=== PATIENT | female | born 1960 | race Caucasian/White ===

== ENCOUNTER 2016-12-02 09:30 | Emergency (ER) | payer OTHER ==
[~2016-12-02] VITALS: Ht 160 cm; Wt 77.0 kg
[2016-12-02] MEDS ORDERED: MOTRIN600 MG PO (13:31)
[2016-12-02 14:36] VITALS: BP 122/74
== END 2016-12-02 14:37 | disposition home or self-care (01) ==
LOC: EME 09:30
DX: S30.0XXA Contusion of lower back and pelvis, initial encounter (principal); S90.01XA Contusion of right ankle, initial encounter; W00.0XXA Fall on same level due to ice and snow, initial encounter
CPT/HCPCS: 73610; 99281; 99283